=== PATIENT | female | born 1960 | race Caucasian/White ===

== ENCOUNTER 2020-05-28 08:26 | Outpatient (CLI) | payer BC ==
--- NOTE | 2020-05-28 10:09 | PET ---
Nuclear medicine FDG PET/CT: (Positron emission tomography and computed tomography) DATE: 05/28/2020 HISTORY: 59-year-old female with C 50.411 breast cancer initial staging. Malignant neoplasm of upper outer abram drant of left female breast. COMPARISON: none TECHNIQUE: IV injection of F-18 fluorodeoxyglucose (FDG) dose: 11.5 mCi. PET scan and attenuation correction CT performed from skull base to proximal thighs. FINDINGS: SUV (standard uptake values) numbers given are maximum SUVs. QCLR used. Approximately 1 cm soft tissue density nodule at the far posterior outer aspect of left breast has LISA V of 2.9. A short distance posterior to that, there are at least 2 mildly enlarged left axillary lymph nodes, e ach on the order of 1 cm, with SUV of 2.2, below the threshold value of 2.5. There is no suspicious hypermetabolic activity within the rib cage, neck, abdomen, pelvis, or skeleto n. There is a greater than 10 mm left renal calculus. There is a right internal jugular implantable vascular access port. IMPRESSION: 1) evidence for left breast cancer. 2) no evidence of distant metastasis.
== END 2020-05-28 08:27 | disposition home or self-care (01) ==
LOC: PET 08:26 → MERGE 08:45
PROVIDERS: ATTEND Internal Medicine Hematology & Oncology
DX: C50.912 Malignant neoplasm of unspecified site of left female breast (principal); R91.8 Other nonspecific abnormal finding of lung field
CPT/HCPCS: 78815; A9552

== ENCOUNTER 2020-09-24 11:41 | Outpatient (CLI) | payer BC ==
[2020-09-24] MEDS ORDERED: Iopamidol 370 76% 100 ML VIAL ONE (11:56)
--- NOTE | 2020-09-24 13:01 | CT ---
CT chest: 09/24/2020 COMPARISON: 05/13/2020 HISTORY: Left-sided breast cancer TECHNIQUE: Axial CT imaging at 5 mm intervals through the chest with IV contrast. Coronal and sagitta l reformatted imaging obtained. FINDINGS: There is a right Port-A-Cath in place. There are postoperative clips within the left axilla . There is a nonspecific fluid collection within the left axilla immediately inferior and anterior to the postoperative clips abutting the posterior lateral aspect of the left pectoralis major and min or musculature. There is a punctate focus of gas along the anterior inferior margin of this. The fluid collection in the left axilla measures approximately 6.5 cm in craniocaudal dimension, 3.8 cm i n transverse dimension, and 4.4 cm in AP dimension. The patient is status post left mastectomy. No axillary adenopathy. No mediastinal or hilar adenopathy. Partially imaged upper abdomen demonstrat es cholecystectomy clips and a posterior left renal midpole stone measuring 1.1 cm in AP dimension. There is a small posterior right renal hypodensity on image 66, too small to characterize, statistica lly likely representing a cyst. There is a small sliding-type hiatal hernia. No pleural, pericardial, or mediastinal fluid. No pneumothorax. No pulmonary parenchymal nodule. No worrisome lytic or blastic bone lesion. IMPRESSION: Interval mastectomy and axillary node dissection on the left. There is a nonspecific flui d collection at the left axillary postoperative site which could signify seroma, lymphocele, or abscess. Clinical correlation is essential. There is a punctate focus of gas within the soft tissues adjacent to the pectoralis muscle which would be suspicious for infection unless the patient is recently postoperative. Results relayed to Dr. Padilla at 12:55 PM 09/24/[address]
== END 2020-09-24 11:42 | disposition home or self-care (01) ==
LOC: CT 11:41
PROVIDERS: ATTEND Internal Medicine Hematology & Oncology
DX: Z51.11 Encounter for antineoplastic chemotherapy (principal); C50.912 Malignant neoplasm of unspecified site of left female breast; Z90.12 Acquired absence of left breast and nipple; Z79.899 Other long term (current) drug therapy
CPT/HCPCS: 71260; 82565; 93306; Q9967

== ENCOUNTER 2020-12-24 12:32 | Outpatient (CLI) | payer BC | END 2020-12-24 12:33 | disposition home or self-care (01) | LOC: ULT 12:32 | PROVIDERS: ATTEND Internal Medicine Hematology & Oncology | DX: Z51.11 Encounter for antineoplastic chemotherapy (principal); C50.112 Malignant neoplasm of central portion of left female breast; I08.0 Rheumatic disorders of both mitral and aortic valves; Z79.899 Other long term (current) drug therapy | CPT/HCPCS: 93306 ==

== ENCOUNTER 2021-03-27 18:00 | Outpatient (CLI) | payer BC | END 2021-03-27 18:01 | disposition home or self-care (01) | LOC: SLEEPLAB 18:00 | PROVIDERS: ATTEND Physician Assistant | DX: G47.33 Obstructive sleep apnea (adult) (pediatric) (principal); G31.84 Mild cognitive impairment of uncertain or unknown etiology; R53.83 Other fatigue; K21.9 Gastro-esophageal reflux disease without esophagitis; R06.83 Snoring; F41.9 Anxiety disorder, unspecified; F32.9 Major depressive disorder, single episode, unspecified; I10 Essential (primary) hypertension; G47.00 Insomnia, unspecified | CPT/HCPCS: 95806 ==

== ENCOUNTER 2021-04-01 12:09 | Outpatient (CLI) | payer BC ==
[2021-04-01 14:12] LABS: Estimated GFR-MDRD - POC Greater than 90
== END 2021-04-01 12:10 | disposition home or self-care (01) ==
LOC: CT 12:09
PROVIDERS: ATTEND Internal Medicine Hematology & Oncology
DX: Z51.11 Encounter for antineoplastic chemotherapy (principal); C50.112 Malignant neoplasm of central portion of left female breast; J98.4 Other disorders of lung; N20.0 Calculus of kidney; N28.1 Cyst of kidney, acquired; K44.9 Diaphragmatic hernia without obstruction or gangrene; I34.0 Nonrheumatic mitral (valve) insufficiency; Z79.899 Other long term (current) drug therapy; Z98.890 Other specified postprocedural states; Z90.12 Acquired absence of left breast and nipple
CPT/HCPCS: 71260; 82565; 93306

== ENCOUNTER 2021-07-01 12:31 | Outpatient (CLI) | payer BC | END 2021-07-01 12:32 | disposition home or self-care (01) | LOC: ULT 12:31 | PROVIDERS: ATTEND Internal Medicine Hematology & Oncology | DX: Z51.11 Encounter for antineoplastic chemotherapy (principal); C50.112 Malignant neoplasm of central portion of left female breast; I08.0 Rheumatic disorders of both mitral and aortic valves; Z79.899 Other long term (current) drug therapy | CPT/HCPCS: 93306 ==

== ENCOUNTER 2021-07-22 08:53 | Outpatient (CLI) | payer BC | END 2021-07-22 08:54 | disposition home or self-care (01) | LOC: BICMAMMO 08:53 | PROVIDERS: ATTEND Internal Medicine Hematology & Oncology | DX: Z08 Encounter for follow-up examination after completed treatment for malignant neoplasm (principal); Z85.3 Personal history of malignant neoplasm of breast | CPT/HCPCS: G0279 ==

== ENCOUNTER 2022-10-09 10:12 | Outpatient (CLI) | payer BC | END 2022-10-09 10:13 | disposition home or self-care (01) | LOC: BICMAMMO 10:12 | PROVIDERS: ATTEND Internal Medicine Hematology & Oncology | DX: C50.112 Malignant neoplasm of central portion of left female breast (principal); R92.8 Other abnormal and inconclusive findings on diagnostic imaging of breast | CPT/HCPCS: G0279 ==

== ENCOUNTER 2025-04-02 10:41 | Outpatient (CLI) | payer OTHER | END 2025-04-02 10:42 | disposition home or self-care (01) | LOC: BICMAMMO 10:41 | PROVIDERS: ATTEND Physician Assistant | DX: Z78.0 Asymptomatic menopausal state (principal); M85.89 Other specified disorders of bone density and structure, multiple sites | CPT/HCPCS: 77080 ==